=== PATIENT | female | born 1945 | race Asian ===

== ENCOUNTER → 2019-01-13 | Outpatient (CLI) | payer MEDICARE, OTHER ==
[~2019-01-13] MED LIST: ALEN70TA5 PO; ANAS1TAB PO; BENA10TA4 PO; CALC-72 PO; LORA10TA3 PO; MEGE40TA PO
== END | disposition home or self-care (01) ==
LOC: NUC 09:25
PROVIDERS: ATTEND Internal Medicine Hematology & Oncology
DX: C50.812 Malignant neoplasm of overlapping sites of left female breast (principal)
CPT/HCPCS: 78472; A9560